=== PATIENT | female | born 1965 | race Caucasian/White ===

== ENCOUNTER → 2017-01-10 | Outpatient (CLI) | payer MEDICAID ==
[~2017-01-10] MED LIST: ASPIRIN 325MG325 MG PO; AZITHROMYCIN250 M1 PO; HYDROCHLOROTHIA25 M1 PO; KEFLEX500 M1 PO; LEVOTHYROXINE0.1 MG PO; PHENTERMINE37.5 MG PO; POTASSIUM CHLO10 ME3 PO; PREDNISONE 10MG10 MG PO; PROAIR HFA0.09 MG/AC IH; PROPRANOLOL HCL40 MG PO; SYMBICORT1 AE1 IH; VISTARIL25 MG PO
--- NOTE | 2017-01-17 08:46 | RADIOLOGY REPORT PS360 ---
DIG MAMM-SCREEN [facility] W/CAD CAD Screening COMPARISON: None, this is baseline INDICATION: There is no personal or family history of breast cancer. The patient has had previous rotator cuff surgery cannot raise her right arm for proper positioning of the right MLO view TECHNIQUE: Standard CC and MLO images were obtained. R2 CAD reviewed. FINDINGS: Scattered fibroglandular densities are seen in both breasts. There is a possible asymmetric density upper outer quadrant right breast. This likely is a summation shadow however recommend patient return for spot compression views for better evaluation. There are no suspicious microcalcifications. IMPRESSION: Fibrofatty parenchyma with possible asymmetric density right breast and recommend patient return for additional views BI-RADS CATEGORY: 0_Incomplete: Need additional imaging RECOMMENDED FOLLOWUP: ADD ADDITIONAL IMAGING (A letter has been sent to the patient regarding results of the study.)
== END ==
LOC: RAD 10:48
DX: Z12.31 Encounter for screening mammogram for malignant neoplasm of breast (principal)
CPT/HCPCS: G0202

== ENCOUNTER → 2017-07-21 | Outpatient (CLI) | payer MEDICAID ==
[~2017-07-21] MED LIST changes: +NAPROSYN 500MG500 MG PO
--- NOTE | 2017-07-21 21:08 | RADIOLOGY REPORT PS360 ---
CT LUMBAR SPINE W/O CONTRAST CLINICAL INDICATION: LOW BACK PAIN ORDERING PHYSICIAN: Irish Mckeon MD PATIENT AGE: 52 years COMPARISON: Radiograph of 03/19/2017 TECHNIQUE:Axial, sagittal, and coronal images are generated and reviewed without contrast FINDINGS: There is normal alignment. There has been prior spinal views lesion at L5 and S1 with interpedicular screws present at these levels with disc spacer material present. T12-L1 and L1-L2 have an unremarkable appearance. L2-L3: Minimal bulging disc. L3-L4: Minimal bulging disc. There is mild ligamentum flavum hypertrophy with mild bilateral lateral recess narrowing. L4-5: Mild concentric bulging disc. There may be small central broad based disc protrusion. There is moderate facet and ligamentum flavum hypertrophy with bilateral lateral recess and foraminal narrowing.. L5-S1: Interpedicular screws present with fusion. Prior laminectomy at L5-S1. Significant artifact is present from the underlying hardware making evaluation of the disc space itself difficult IMPRESSION: 1. Postsurgical changes at L5-S1. 2. Bulging disc at L4-L5 with small broad-based central disc protrusion with moderate facet and ligamentum hypertrophy with bilateral lateral recess and foraminal narrowing. 3. Mild bilateral lateral recess narrowing at L3-L4 with mild bulging disc
== END ==
LOC: RAD 14:44
DX: M54.5 Low back pain (principal)